=== PATIENT | female | born 1950 | race Caucasian/White ===

== ENCOUNTER → 2016-08-03 08:28 | Day surgery (SDC) | payer MEDICARE, MEDICAID ==
--- NOTE | 2016-07-29 15:06 | HP ---
PREOPERATIVE HISTORY AND PHYSICAL: DATE OF ADMISSION/SURGERY: 08/03/16 DATE OF OFFICE VISIT/ENCOUNTER: 07/28/16 ATTENDING SURGEON: Catrachita Healy MD PROCEDURE: Right carpometacarpal joint arthroplasty, right wrist de Quervain's release. CHIEF COMPLAINT: Right wrist radial sided pain. HISTORY OF PRESENT ILLNESS: This is a 66-year-old female who complains of pain at the base of her r ight thumb and the radial aspect of her wrist. It has been ongoing for 6 months. She does not reca ll any injury. She recently was seen by Dr. Johnson in [place] and had x-rays taken there, which re vealed CMC joint arthritis. She was also diagnosed with de Quervain's tenosynovitis at the [facility]. She has been wearing a thumb spica wrist brace, which initially gave her some relief; however, s ymptoms have persisted. She denies any numbness or tingling. She is interested in pursuing surgica l intervention for both of these problems at this time. PAST MEDICAL HISTORY: 1. History of endometriosis. 2. Acid reflux. PAST SURGICAL HISTORY: 1. Hysterectomy. 2. Cholecystectomy. MEDICATIONS: 1. Cholestyramine Light 4 g per dose daily. 2. Ranitidine 150 mg twice a day. 3. Sucralfate 1 g one 4 times per day. ALLERGIES: No known drug allergies. FAMILY MEDICAL HISTORY: Significant for congestive heart failure and cancer. SOCIAL HISTORY: The patient is retired. She is an avid dining room helper. She is a smoker, smokes about whitehead lf a pack per day and has done so for the past 20 years. She denies recreational drug use and alcoho l use. REVIEW OF SYSTEMS: General: Negative for fevers, chills, or night sweats. No known anesthesia pro blems. HEENT: Negative for headache, lightheadedness, or syncopal episodes. Integumentary: Negat gail for abrasions, lesions, or open wounds. Cardiothoracic: Negative for chest pain, palpitations, or edema. Negative for hypertension. Pulmonary: Negative for shortness of breath with exertion, c hronic cough, COPD. GI: Positive for acid reflux. Negative for nausea, vomiting, diarrhea, or con stipation. : Positive for urinary urgency. Negative for nocturia, frequency, history of UTIs or kidney problems. Musculoskeletal: Positive for current complaint. Negative for chronic or intermit tent back pain or history of fractures. Neurological: Negative for paresthesias, numbness, history of seizures, stroke, or epilepsy. Endocrine: Negative for diabetes or thyroid issues. Hematologic : Negative for easy bruising, anemia, excessive bleeding, or history of DVT. Infectious Disease: Negative for history of MRSA, hepatitis C, or HIV. PHYSICAL EXAMINATION GENERAL: Well-developed, well-nourished 66-year-old female in no acute distress. VITAL SIGNS: Height 5 feet 2-1/2 inches, weight 148 pounds, pulse rate 72, blood pressure 120/70. HEENT: Normocephalic, atraumatic. Pupils are equal, round, and reactive to light and accommodation . Extraocular movements are intact. NECK: Supple. No palpable lymph nodes. Throat is clear. PULMONARY: Lungs are clear to auscultation bilaterally. No wheezes, rales, or rhonchi. CARDIOTHORACIC: Regular rate and rhythm. S1, S2. No murmurs, rubs, or gallops. No edema. ABDOMEN: Positive bowel sounds, soft, and nontender. NEUROLOGIC: Alert and oriented x3. Cranial nerves II through XII are intact. Sensation is intact t o light touch. MUSCULOSKELETAL: On exam of her right upper extremity, there is tenderness to palpation at the thum b CMC joint, positive grind test, also tenderness along the first dorsal compartment and a positive Luis's test. She has good opposition of her thumb. No hyperextension deformity at the MP karen int. Skin is intact. Neurovascular function intact. There is no swelling. IMAGING STUDIES: X-rays - AP, lateral, and oblique of the right thumb show severe degenerative art hritis at the carpometacarpal joint with complete loss of joint space and osteophytes. IMPRESSION: Right thumb carpometacarpal arthritis and de Quervain tenosynovitis. PLAN/RECOMMENDATIONS: The patient is scheduled to undergo a right CMC joint arthroplasty and a righ t wrist de Quervain's release with Dr. Healy on 08/03/16. She will return to the office 10 to 14 day s postop for followup and suture removal. A prescription for Wana was e-scribed to the patient's armacy for postoperative pain management. CASANDRA SOLORZANO [id number]/[facility] #: [id number]
[~2016-08-03 08:28] MED LIST: Acetaminophen TAB* 325 MG PO PRN; Buffered Lidocaine 1% SYR 3ML* 3 ML/SYR SYRINGE INTRADERM ONE; Bupivacaine 0.5% SDV PF* 30 ML VIAL ONE; DiMENhydriNATE IV* 50 MG/ML VIAL IV PUSH PRN; Famotidine IV* 10 MG/ML 2 ML (20 mg) IV ONE; Famotidine IV* 10 MG/ML 2 ML (20 mg) ONE; Ketorolac INJ* 30 MG/ML 1 ML VIAL ONE; Lidocaine 0.5%* 50 ML SDV ONE; Lidocaine 2% PF * 5 ML VIAL ONE; Midazolam* 1 MG/ML 5 ML VIAL (5 MG) ONE; Ondansetron INJ* 2 MG/ML VIAL ONE; Propofol* 10 MG/ML 20 ML BTL IV PUSH ONE; ceFAZolin 2 GM PREMIX (*) 2 GM/50 ML BAG IVPB ONE; fentaNYL* 50 MCG/ML 2 ML VIAL (100 MCG VIAL) ONE; oxyCODONE/Acetamin 5/325 MG* TAB PO PRN
[2016-08-03 11:02] VITALS: BP 130/70
--- NOTE | 2016-08-04 19:32 | OP ---
DATE OF OPERATION: 08/03/16 - [facility] DATE OF : 50 SURGEON: Catrachita Healy MD CHIEF OF PEDIATRIC UROLOGY: CASANDRA Berrios ANESTHESIOLOGIST: Erica Hogan MD ANESTHESIA: IV regional. PRE-OP DIAGNOSES: Carpometacarpal arthritis on the right thumb and de Quervain' s tenosynovitis of the right wrist. POST-OP DIAGNOSES: Carpometacarpal arthritis on the right thumb and de Quervain 's tenosynovitis of the right wrist. OPERATIVE PROCEDURE: Right de Quervain's release and CMC arthroplasty. INDICATIONS: Gladys is a 66-year-old female who has pain at the base of her right thumb. She has de Quervain's tenosynovitis and carpometacarpal arthritis. She declined conservative treatment and presents for CMC arthroplasty and de Quervain's release. ESTIMATED BLOOD LOSS: Zero. TOURNIQUET TIME: About 35 minutes. DESCRIPTION OF PROCEDURE: The patient was brought to the operating room, was given a sedation anesthetic, and an IV regional anesthetic with tourniquet around her right upper arm. The skin of her right upper extremity was prepped and draped in the usual sterile fashion. The hand and forearm had been exsanguinated prior to instillation of the anesthesia. A curvilinear incision was made centered at the thumb CMC joint and we dissected bluntly through the subcutaneous tissue. Branches of the radial sensory nerves were located and retracted. The first dorsal compartment was completely released. EPB and APL tendons were in separate compartments and they were both thoroughly released. The tendons were been retracted and the radial artery carefully dissected out and retracted by the surgical brace maker, Genie Jovel. A distally based U- shaped flap was created at the thumb CMC joint capsule and subperiosteally dissected off the trapezium. The trapezium was then removed in its entirety and the wound copiously irrigated with saline. The CMC joint capsules then secured to the FCR tendon in the base of the wound with 4-0 nylon suture and the remainder of the capsule was closed with 4-0 nylon. This gave very nice abduction position of the metacarpal. The skin edges were reapproximated and the wound dressed with Xeroform, 4x4, Webril, and a thumb spica splint. The patient tolerated the procedure well and was brought to the recovery room in good condition. [id number]/[facility] #: [id number] MEL
== END | disposition home or self-care (01) ==
LOC: OREAST 08:28
PROVIDERS: ATTEND Orthopaedic Surgery
DX: M18.11 Unilateral primary osteoarthritis of first carpometacarpal joint, right hand (principal); M65.4 Radial styloid tenosynovitis [de Quervain]; F17.210 Nicotine dependence, cigarettes, uncomplicated
CPT/HCPCS: 88304; 88311; J0690; J1885; J2250; J2405; J2704; J3010

== ENCOUNTER 2018-03-22 12:34 | Day surgery (SDC) | payer MEDICARE, MEDICAID ==
[~2018-03-22 12:34] MED LIST changes: +Buffered Lidocaine 0.9% SYRIN* 5 ML/SYR SYRINGE INTRADERM ONE; -Buffered Lidocaine 1% SYR 3ML* 3 ML/SYR SYRINGE INTRADERM ONE; -Bupivacaine 0.5% SDV PF* 30 ML VIAL ONE; -DiMENhydriNATE IV* 50 MG/ML VIAL IV PUSH PRN; -Famotidine IV* 10 MG/ML 2 ML (20 mg) IV ONE; -Famotidine IV* 10 MG/ML 2 ML (20 mg) ONE; -Ketorolac INJ* 30 MG/ML 1 ML VIAL ONE; -Lidocaine 0.5%* 50 ML SDV ONE; -Lidocaine 2% PF * 5 ML VIAL ONE; -Midazolam* 1 MG/ML 5 ML VIAL (5 MG) ONE; -Ondansetron INJ* 2 MG/ML VIAL ONE; -Propofol* 10 MG/ML 20 ML BTL IV PUSH ONE; -ceFAZolin 2 GM PREMIX (*) 2 GM/50 ML BAG IVPB ONE; -fentaNYL* 50 MCG/ML 2 ML VIAL (100 MCG VIAL) ONE; -oxyCODONE/Acetamin 5/325 MG* TAB PO PRN
[2018-03-22] MEDS ORDERED: Midazolam* 1 MG/ML 2 ML VIAL (2 MG) ONE (14:40)
[2018-03-22 15:18] VITALS: BP 129/67
[2018-03-22] MEDS ORDERED: Ketorolac 0.5% OPHTH (NF) 0.5 % 5 ML BTL ONE (15:43)
[2018-03-22] MEDS ORDERED: Phenylephrine 2.5% OPTH.SOL* 2 ML BTL ONE (15:43)
[2018-03-22] MEDS ORDERED: Proparacaine 0.5% OPHTH.SOL* 15 ML BTL ONE (15:43)
[2018-03-22] MEDS ORDERED: Neomycin/Polymy/Dex OPTH.SUSP* MAXITROL 0.1% 5 ML ONE (15:43)
[2018-03-22] MEDS ORDERED: Cyclopentolate 1% OPTH.SOL* 2 ML BTL ONE (15:43)
[2018-03-22] MEDS ORDERED: acetaZOLAMIDE TAB* 250 MG ONE (15:43)
[2018-03-22] MEDS ORDERED: Povidone Iodine 5% OPTH* 30 ML BTL ONE (15:43)
[2018-03-22] MEDS ORDERED: Lidocaine 1%* 5 ML VIAL ONE (15:43)
[2018-03-22] MEDS ORDERED: Lidocaine 2% EPI 1:200000 MPF*10-20 ML VIAL ONE (15:43)
--- NOTE | 2018-03-23 05:14 | OP ---
DATE OF OPERATION: 03/22/18 [facility] DATE OF : 50 SURGEON: Nolberto Ly M.D. PREOPERATIVE DIAGNOSIS: Cataract, right eye. POSTOPERATIVE DIAGNOSIS: Cataract, right eye. OPERATIVE PROCEDURE: Extracapsular cataract extraction with intraocular lens implant right eye. DESCRIPTION OF PROCEDURE: The patient was brought to the operating room after being given 1/2% Alcaine with epinephrine drops in the preoperative area. The eye was prepped and draped in the usual sterile fashion. Sterile drape and eyelid speculum were placed. Again, topical 1/2% Alcaine with epinephrine was given. A paracentesis incision was made at the 9 o'clock position with the No.75 blade. Clear cornea incision 2.2 x 2.2-mm was created at the 12 o'clock position starting at the anterior limbus using the 2.2-mm keratome. The anterior chamber was irrigated with 0.4 mL of 1% non-preservative intracameral lidocaine and filled with DisCoVisc. A capsulorrhexis was completed using the cystotome and the Utrata forceps. Hydrodissection was performed with balanced salt solution. The lens nucleus was removed with the Phacoemulsification handpiece without incident. Cortex was removed with the irrigation-aspiration handpiece. The capsular bag was re-inflated using DisCoVisc and an [id number] implant was inserted with the shooter. The irrigation-aspiration handpiece was used to remove all residual DisCoVisc. The eye was refilled with balanced salt solution and the wound checked and found to be watertight. Topical Maxitrol drops were given. [id number]/[facility] #: [id number] MTDD
== END 2018-03-29 11:50 | disposition home or self-care (01) ==
LOC: OREAST 12:34
PROVIDERS: ATTEND Specialist
DX: H25.811 Combined forms of age-related cataract, right eye (principal); Z72.0 Tobacco use; E78.2 Mixed hyperlipidemia; K21.9 Gastro-esophageal reflux disease without esophagitis
CPT/HCPCS: A9270-GY; J2250; V2632

== ENCOUNTER → 2018-03-29 09:13 | Day surgery (SDC) | payer MEDICARE, MEDICAID ==
[~2018-03-29 09:13] MED LIST changes: +Cyclopentolate 1% OPTH.SOL* 2 ML BTL ONE; +Ketorolac 0.5% OPHTH (NF) 0.5 % 5 ML BTL ONE; +Lidocaine 1%* 5 ML VIAL ONE; +Lidocaine 2% EPI 1:200000 MPF*10-20 ML VIAL ONE; +Midazolam* 1 MG/ML 2 ML VIAL (2 MG) ONE; +Neomycin/Polymy/Dex OPTH.SUSP* MAXITROL 0.1% 5 ML ONE; +Phenylephrine 2.5% OPTH.SOL* 2 ML BTL ONE; +Povidone Iodine 5% OPTH* 30 ML BTL ONE; +Proparacaine 0.5% OPHTH.SOL* 15 ML BTL ONE; +acetaZOLAMIDE TAB* 250 MG ONE; +fentaNYL* 50 MCG/ML 2 ML VIAL (100 MCG VIAL) ONE
[2018-03-29 11:48] VITALS: BP 117/72
--- NOTE | 2018-03-29 12:16 | OP ---
DATE OF OPERATION: 03/29/2018. DATE OF : 1950. SURGEON: Nolberto Ly M.D. PREOPERATIVE DIAGNOSIS: Cataract left eye. POSTOPERATIVE DIAGNOSIS: Cataract left eye. OPERATIVE PROCEDURE: Extracapsular cataract extraction with intraocular lens implant left eye. PROCEDURE: The patient was brought to the operating room after being given 1/2% Alcaine with epineph rine drops in the preoperative area. The eye was prepped and draped in the usual sterile fashion. S terile drape and eyelid speculum were placed. Again, topical 1/2% Alcaine with epinephrine was given . A paracentesis incision was made at the 3 o'clock position with the No.75 blade. Clear cornea inc ision 2.2 x 2.2-mm was created at the 6 o'clock position starting at the anterior limbus using the 2. 2-mm keratome. The anterior chamber was irrigated with 0.4 mL of 1% non-preservative intracameral li docaine and filled with DisCoVisc. A capsulorrhexis was completed using the cystotome and the Utrata forceps. Hydrodissection was performed with balanced salt solution. The lens nucleus was removed wi th the Phacoemulsification handpiece without incident. Cortex was removed with the irrigation-aspira tion handpiece. The capsular bag was re-inflated using DisCoVisc and an SN60WF 23.5 implant was inse rted with the shooter. The irrigation-aspiration handpiece was used to remove all residual DisCoVisc . The eye was refilled with balanced salt solution and the wound checked and found to be watertight. Topical Maxitrol drops were given. [id number]/[facility] #: [id number]
== END | disposition home or self-care (01) ==
LOC: OREAST 09:13
PROVIDERS: ATTEND Specialist
DX: H25.812 Combined forms of age-related cataract, left eye (principal); Z72.0 Tobacco use; E78.5 Hyperlipidemia, unspecified; K21.9 Gastro-esophageal reflux disease without esophagitis
CPT/HCPCS: A9270-GY; J2250; J3010; V2632